=== PATIENT | female | born 1955 | race Caucasian/White ===

== ENCOUNTER 2021-06-03 17:37 | Inpatient (IN) | payer MEDICARE, BC ==
[~2021-06-03] VITALS: Ht 170.2 cm; Wt 108.9 kg
[2021-06-03] MEDS ORDERED: BP MED (17:54)
[2021-06-03] MEDS ORDERED: AMBIEN (17:54)
[2021-06-03] MEDS ORDERED: MORPHINE SULFATE 2 MG/1 ML DISP.SYRIN IV ONE (18:00)
[2021-06-03] MEDS ORDERED: ONDANSETRON 4 MG/2 ML VIAL IV ONE ×2 (18:00→19:15)
[2021-06-03] MEDS ORDERED: MORPHINE SULFATE 4 MG/1 ML DISP.SYRIN ONE (18:03)
[2021-06-03] MEDS ORDERED: ONDANSETRON 4 MG/2 ML VIAL ONE ×2 (18:04→19:21)
--- NOTE | 2021-06-03 18:10 | NUR ---
Pt out of ER for Ct.
--- NOTE | 2021-06-03 18:56 | NUR ---
Pt back from Ct, placed on the monitor. Ice pack to Rt side of face.
--- NOTE | 2021-06-03 19:03 | NUR ---
Handsoff report given to celina production supervisor off shift DAVID.
--- NOTE | 2021-06-03 19:04 | NUR ---
Yash Mai at bedside, MSE in progress.
[2021-06-03] MEDS ORDERED: HYDROMORPHONE 1 MG/1 ML DISP.SYRIN IV ONE (19:15)
[2021-06-03] MEDS ORDERED: LORAZEPAM 2 MG/1 ML VIAL IV ONE (19:15)
[2021-06-03] MEDS ORDERED: HYDROMORPHONE 1 MG/1 ML DISP.SYRIN ONE (19:21)
[2021-06-03] MEDS ORDERED: LORAZEPAM 2 MG/1 ML VIAL ONE (19:22)
[2021-06-03 20:23] LABS: HEMATOCRIT 35.6 % (31.2-41.9); MEAN CORPUSCULAR HEMOGLOBIN 33.3 uug (24.7-32.8); MEAN CORPUSCULAR VOLUME 100.9 fL (75.5-95.3); PLATELET COUNT (AUTO) 263 K/uL (179-408)
[2021-06-03 20:35] LABS: BILIRUBIN,DIRECT 0.1 mg/dL (0.0-0.2); BILIRUBIN,TOTAL 0.3 mg/dL (0.2-1.0); CREATININE 1.2 mg/dL (0.6-1.3); POTASSIUM 3.9 mmol/L (3.5-5.1); TOTAL PROTEIN, SERUM 6.4 g/dL (6.4-8.2)
--- NOTE | 2021-06-03 21:33 | NUR ---
PAGED [facility] FOR PANEL CALL, DR. BURNS CALLED.
--- NOTE | 2021-06-03 21:53 | NUR ---
MD Franklin Good requested to talk to Destinee Felipe paged. Pending call back.
[2021-06-03] MEDS ORDERED: ACETAMINOPHEN 325 MG TABLET PO PRN (22:30)
[2021-06-03] MEDS ORDERED: MAGNESIUM HYDROXIDE 30 ML LIQUID UDC PO PRN (22:30)
[2021-06-03] MEDS ORDERED: Z GUARD REMEDY PASTE 57 GM TUBE TOP PRN (22:30)
--- NOTE | 2021-06-03 23:02 | NUR ---
GAVE REPORT TO CHASITY, MED SURG FLOOR.
--- NOTE | 2021-06-03 23:23 | NUR ---
Pt. admitted to med Surg room 309 , under care of Dr. Felipe Dx: T-12 fracture Belongs List completed
[2021-06-03 23:30] VITALS: BP 105/49
--- NOTE | 2021-06-03 23:30 | NUR ---
RECEIVED PATIENT VIA GURNEY FROM ER. A/O X4. C/O PAIN UPON ARRIVAL TO FLOOR. VS WNL. NO RESP. DISTRESS NOTED. H/L INTACT AND PATENT, NOTED TO LEFT WRIST #20 GAUGE. BED ALARM ON. PATIENT MADE COMFORTABLE IN BED. CALL LIGHT IN REACH. ALL NEEDS ATTENDED. WILL CONTINUE TO MONITOR AND ASSESS.
[2021-06-03] MEDS: MORPHINE SULFATE 2 MG/1 ML DISP.SYRIN IV PRN (23:43)
[2021-06-04] MEDS ORDERED: ZOLP5TAB2 PO (00:31)
[2021-06-04] MEDS ORDERED: MELA3TAB41 PO (00:31)
[2021-06-04] MEDS ORDERED: METF1000 PO (00:31)
[2021-06-04 04:00] VITALS: BP 103/56
[2021-06-04] MEDS: MORPHINE SULFATE 2 MG/1 ML DISP.SYRIN IV PRN ×2 (04:43→12:40)
[2021-06-04] MEDS: PANTOPRAZOLE SODIUM 40 MG TABLET.DR PO SCH (06:17)
--- NOTE | 2021-06-04 06:33 | NUR ---
PATIENT AWAKE IN BED. SLEPT AT INTERVALS THROUGHOUT THE NIGHT. NO RESP. DISTRESS NOTED. VS WNL. CALL LIGHT IN REACH. ALL NEEDS ATTENDED. WILL CONTINUE TO MONITOR.
[2021-06-04 07:55] LABS: HEMATOCRIT 32.3 % (31.2-41.9); MEAN CORPUSCULAR HEMOGLOBIN 34.6 uug (24.7-32.8); PLATELET COUNT (AUTO) 232 K/uL (179-408)
[2021-06-04 08:07] LABS: CREATININE 1.3 mg/dL (0.6-1.3); PHOSPHOROUS 4.5 mg/dL (2.5-4.9); POTASSIUM 4.2 mmol/L (3.5-5.1)
[2021-06-04 08:23] LABS: THYROID STIMULATING HORMONE 1.097 mIU/mL (0.358-3.740)
[2021-06-04] MEDS ORDERED: BUPR-53 PO (11:38)
[2021-06-04] MEDS ORDERED: LEVO100T10 PO (11:38)
[2021-06-04] MEDS ORDERED: ROSU20TA2 PO (11:38)
[2021-06-04] MEDS ORDERED: BLOO-668 IN (11:38)
[2021-06-04] MEDS ORDERED: UBID100C13 PO (11:38)
[2021-06-04] MEDS ORDERED: VALA500T34 PO (11:38)
[2021-06-04] MEDS ORDERED: PANT40TA2 PO (11:38)
[2021-06-04] MEDS ORDERED: INSU100C (11:38)
[2021-06-04] MEDS ORDERED: DULO60CA45 PO (11:38)
[2021-06-04] MEDS ORDERED: DULA0.75 SQ (11:38)
[2021-06-04] MEDS ORDERED: BENA1TAB18 PO (11:38)
[2021-06-04 11:45] VITALS: BP 115/52
[2021-06-04] MEDS: CYCLOBENZAPRINE HCL 10 MG TABLET PO PRN (11:56)
[2021-06-04 16:01] VITALS: BP 131/60
[2021-06-04] MEDS: HYDROCODONE/APAP 5-325MG TABLET PO PRN (16:38)
[2021-06-04] MEDS ORDERED: DEXTROSE 50% 50 ML DISP.SYRIN IV PRN (18:30)
[2021-06-04 20:00] VITALS: BP 120/60
[2021-06-04] MEDS: ATORVASTATIN 40 MG TABLET PO SCH (20:28)
[2021-06-04] MEDS: MELATONIN 3 MG TABLET PO SCH (20:28)
[2021-06-04] MEDS: BLOOD SUGAR DIAGNOSTIC 1 EACH STRIP VI SCH (20:34)
[2021-06-04] MEDS: ZOLPIDEM 5 MG TABLET PO PRN (20:44)
[2021-06-04] MEDS: INSULIN REGULAR, HUMAN 300 UNITS/3 ML VIAL SQ PRN (20:44)
[2021-06-04] MEDS ORDERED: Medication Not On Formulary EA (Rosuvastatin Calcium (Crestor) 1 TAB) PO SCH (21:00)
[2021-06-05] MEDS: CYCLOBENZAPRINE HCL 10 MG TABLET PO PRN ×2 (00:57→09:03)
[2021-06-05 04:00] VITALS: BP 120/60
--- NOTE | 2021-06-05 05:34 | NUR ---
Pt slept intermittently throughout the night. Denies SOB at this time. Able to make needs known. Unable to get to sitting position due to back pain. Able to use bed pain. IV site intact. No other issues or concerns at this time, will endorse to day shift.
[2021-06-05] MEDS: LEVOTHYROXINE SODIUM 100 MCG TABLET PO SCH (06:36)
[2021-06-05] MEDS: PANTOPRAZOLE SODIUM 40 MG TABLET.DR PO SCH (06:36)
[2021-06-05 06:52] LABS: HEMATOCRIT 32.1 % (31.2-41.9); MEAN CORPUSCULAR VOLUME 100.7 fL (75.5-95.3); PLATELET COUNT (AUTO) 194 K/uL (179-408)
[2021-06-05] MEDS: BLOOD SUGAR DIAGNOSTIC 1 EACH STRIP VI SCH ×4 (07:03→20:35)
[2021-06-05 07:21] LABS: PHOSPHOROUS 4.2 mg/dL (2.5-4.9); POTASSIUM 3.9 mmol/L (3.5-5.1)
[2021-06-05] MEDS: INSULIN REGULAR, HUMAN 300 UNIT/3 ML VIAL SQ PRN ×3 (07:32→16:28)
[2021-06-05] MEDS: BENAZEPRIL HCL 20 MG TABLET PO SCH (08:02)
[2021-06-05] MEDS: VALACYCLOVIR HCL 500 MG TABLET PO SCH (08:02)
[2021-06-05] MEDS: DULOXETINE 60 MG CAPSULE.DR PO SCH (08:03)
[2021-06-05] MEDS: buPROPion XL 150 MG TAB.SR.24H PO SCH (08:03)
[2021-06-05] MEDS: HYDROCHLOROTHIAZIDE 12.5 MG CAPSULE PO SCH (08:03)
[2021-06-05] MEDS ORDERED: Medication Not On Formulary EA (Ubidecarenone (Coq-10) 200 MG) PO SCH (09:00)
[2021-06-05] MEDS: HYDROCODONE/APAP 5-325MG TABLET PO PRN ×3 (09:03→19:11)
[2021-06-05 11:30] VITALS: BP 97/40
[2021-06-05] MEDS ORDERED: LIDOCAINE 5% PATCH TD SCH (14:15)
[2021-06-05 14:42] VITALS: BP 101/56
[2021-06-05] MEDS: CYCLOBENZAPRINE HCL 10 MG TABLET PO SCH (16:17)
[2021-06-05] MEDS: METFORMIN HCL 500 MG TABLET PO SCH (18:00)
[2021-06-05] MEDS: MELATONIN 3 MG TABLET PO SCH (20:06)
[2021-06-05] MEDS: ATORVASTATIN 40 MG TABLET PO SCH (20:06)
[2021-06-05 20:16] VITALS: BP 121/68
[2021-06-05] MEDS: INSULIN REGULAR, HUMAN 300 UNITS/3 ML VIAL SQ PRN (20:35)
[2021-06-05] MEDS: MORPHINE SULFATE 4 MG/1 ML DISP.SYRIN IV PRN (22:10)
[2021-06-05] MEDS: ONDANSETRON 4 MG/2 ML VIAL IV PRN (22:52)
[2021-06-06] MEDS: CYCLOBENZAPRINE HCL 10 MG TABLET PO SCH ×4 (00:07→16:18)
[2021-06-06] MEDS: HYDROCODONE/APAP 5-325MG TABLET PO PRN ×3 (02:34→20:57)
[2021-06-06] MEDS: ZOLPIDEM 5 MG TABLET PO PRN ×2 (03:00→22:57)
[2021-06-06 05:10] VITALS: BP 101/59
--- NOTE | 2021-06-06 05:58 | NUR ---
Pt slept intermittently throughout the night. Reports having a lot of back pain and spasms. Dr Felipe notified. Pt's was upset that no one discussed the plan of care with him and wanted to speak to the nursing files supervisor. Nursing files supervisor came to speak with patient. Pt has family friend that is a Doctor at [facility], Dr. Zeferino Walker, that states he will be the accepting physician. Transfer center at [facility] was called to initiate transfer process, spoke with Sravanthi. She states that no beds were available and that they are waiting for financial approval from the patient's insurance. Will endorse to day shift to follow up with [facility] transfer center.
[2021-06-06] MEDS: PANTOPRAZOLE SODIUM 40 MG TABLET.DR PO SCH (06:27)
[2021-06-06] MEDS: LEVOTHYROXINE SODIUM 100 MCG TABLET PO SCH (06:27)
[2021-06-06] MEDS: BLOOD SUGAR DIAGNOSTIC 1 EACH STRIP VI SCH ×4 (06:33→20:45)
[2021-06-06] MEDS: INSULIN REGULAR, HUMAN 300 UNIT/3 ML VIAL SQ PRN ×3 (07:23→16:40)
[2021-06-06 07:28] LABS: HEMATOCRIT 32.8 % (31.2-41.9); MEAN CORPUSCULAR HEMOGLOBIN 34.5 uug (24.7-32.8); MEAN CORPUSCULAR VOLUME 101.6 fL (75.5-95.3); PLATELET COUNT (AUTO) 206 K/uL (179-408)
[2021-06-06] MEDS: HYDROCHLOROTHIAZIDE 12.5 MG CAPSULE PO SCH (08:02)
[2021-06-06] MEDS: BENAZEPRIL HCL 20 MG TABLET PO SCH (08:02)
[2021-06-06] MEDS: buPROPion XL 150 MG TAB.SR.24H PO SCH (08:03)
[2021-06-06] MEDS: DULOXETINE 60 MG CAPSULE.DR PO SCH (08:03)
[2021-06-06] MEDS: VALACYCLOVIR HCL 500 MG TABLET PO SCH (08:03)
[2021-06-06] MEDS: METFORMIN HCL 500 MG TABLET PO SCH ×2 (08:03→17:06)
[2021-06-06 08:06] LABS: *IMMUNOGLOBULIN G, SERUM 389 mg/dL (586-1602); CANCER AG, 125 4.9 U/mL (0.0-38.1); CANCER ANTIGEN 15-3 2.3 U/mL (0.0-25.0); IMMUNOGLOBULIN A, SERUM 107 mg/dL (87-352); IMMUNOGLOBULIN M, SERUM 31 mg/dL (26-217)
[2021-06-06 12:11] VITALS: BP 102/43
[2021-06-06 16:17] VITALS: BP 106/46
[2021-06-06] MEDS: LIDOCAINE 5% PATCH TD SCH (17:06)
[2021-06-06 20:05] VITALS: BP 96/48
[2021-06-06] MEDS: FERROUS SULFATE 325 MG TABEC PO SCH (20:35)
[2021-06-06] MEDS: MELATONIN 3 MG TABLET PO SCH (20:35)
[2021-06-06] MEDS: ATORVASTATIN 40 MG TABLET PO SCH (20:35)
[2021-06-06] MEDS: INSULIN REGULAR, HUMAN 300 UNITS/3 ML VIAL SQ PRN (20:47)
[2021-06-06 20:54] VITALS: BP 112/59
[2021-06-07] MEDS: HYDROCODONE/APAP 5-325MG TABLET PO PRN (02:53)
[2021-06-07] MEDS: CYCLOBENZAPRINE HCL 10 MG TABLET PO SCH ×5 (03:44→16:13)
--- NOTE | 2021-06-07 05:34 | NUR ---
Pt slept intermittently throughout the night. Denies having SOB. Patient has cramps and muscle spasms in back. Tolerated all medications given. Called [facility] transfer center to f/u on bed, still no beds available. Safety and comfort provided. Will endorse to day shift.
[2021-06-07 05:52] VITALS: BP 107/54
[2021-06-07 06:18] LABS: HEMATOCRIT 30.9 % (31.2-41.9); MEAN CORPUSCULAR VOLUME 100.6 fL (75.5-95.3); PLATELET COUNT (AUTO) 209 K/uL (179-408)
[2021-06-07] MEDS: LEVOTHYROXINE SODIUM 100 MCG TABLET PO SCH (06:31)
[2021-06-07] MEDS: PANTOPRAZOLE SODIUM 40 MG TABLET.DR PO SCH (06:31)
[2021-06-07] MEDS: BLOOD SUGAR DIAGNOSTIC 1 EACH STRIP VI SCH ×4 (06:40→20:30)
[2021-06-07 06:50] LABS: CREATININE 1.1 mg/dL (0.6-1.3)
[2021-06-07] MEDS: INSULIN REGULAR, HUMAN 300 UNIT/3 ML VIAL SQ PRN ×2 (07:33→16:16)
[2021-06-07] MEDS: MULTIVITAMINS,THERAPEUTIC TABLET PO SCH (08:06)
[2021-06-07] MEDS: HYDROCHLOROTHIAZIDE 12.5 MG CAPSULE PO SCH (08:06)
[2021-06-07] MEDS: METFORMIN HCL 500 MG TABLET PO SCH ×2 (08:06→17:08)
[2021-06-07] MEDS: DULOXETINE 60 MG CAPSULE.DR PO SCH (08:06)
[2021-06-07] MEDS: BENAZEPRIL HCL 20 MG TABLET PO SCH (08:06)
[2021-06-07] MEDS: FERROUS SULFATE 325 MG TABEC PO SCH ×2 (08:06→20:30)
[2021-06-07] MEDS: buPROPion XL 150 MG TAB.SR.24H PO SCH (08:06)
[2021-06-07] MEDS: VALACYCLOVIR HCL 500 MG TABLET PO SCH (08:07)
[2021-06-07] MEDS: MORPHINE SULFATE 4 MG/1 ML DISP.SYRIN IV PRN (09:16)
[2021-06-07 12:00] VITALS: BP 126/46
[2021-06-07 16:13] VITALS: BP 102/52
[2021-06-07] MEDS: LIDOCAINE 5% PATCH TD SCH (17:08)
--- NOTE | 2021-06-07 19:45 | NUR ---
Patient awake in bed. Bed flat, patient laying on side, c/o back pain. at bedside. Patient given [place] 1 tab po prn for pain. vs wnl. Heplock intact and patent, noted to left fa #20 gauge. Call light in reach. All needs attended. Will continue to monitor and assess.
[2021-06-07] MEDS: HYDROCODONE/APAP 10-325 MG TABLET PO PRN (19:46)
[2021-06-07 20:12] VITALS: BP 132/79
[2021-06-07] MEDS: ONDANSETRON 4 MG/2 ML VIAL IV PRN (20:16)
[2021-06-07] MEDS: MELATONIN 3 MG TABLET PO SCH (20:30)
[2021-06-07] MEDS: ATORVASTATIN 40 MG TABLET PO SCH (20:30)
[2021-06-07] MEDS: ZOLPIDEM 5 MG TABLET PO PRN (23:46)
[2021-06-08 04:12] VITALS: BP 133/67
[2021-06-08] MEDS: LEVOTHYROXINE SODIUM 100 MCG TABLET PO SCH (06:28)
[2021-06-08] MEDS: PANTOPRAZOLE SODIUM 40 MG TABLET.DR PO SCH (06:28)
[2021-06-08] MEDS: HYDROCODONE/APAP 10-325 MG TABLET PO PRN (06:30)
[2021-06-08 06:36] LABS: HEMATOCRIT 31.7 % (31.2-41.9); MEAN CORPUSCULAR HEMOGLOBIN 33.8 uug (24.7-32.8); MEAN CORPUSCULAR VOLUME 100.2 fL (75.5-95.3); PLATELET COUNT (AUTO) 255 K/uL (179-408)
[2021-06-08] MEDS: BLOOD SUGAR DIAGNOSTIC 1 EACH STRIP VI SCH ×4 (06:40→20:34)
[2021-06-08 06:46] LABS: PHOSPHOROUS 3.8 mg/dL (2.5-4.9); POTASSIUM 4.5 mmol/L (3.5-5.1)
[2021-06-08] MEDS: INSULIN REGULAR, HUMAN 300 UNIT/3 ML VIAL SQ PRN ×4 (07:32→20:36)
[2021-06-08] MEDS: FERROUS SULFATE 325 MG TABEC PO SCH ×2 (08:15→20:00)
[2021-06-08] MEDS: HYDROCHLOROTHIAZIDE 12.5 MG CAPSULE PO SCH (08:15)
[2021-06-08] MEDS: MULTIVITAMINS,THERAPEUTIC TABLET PO SCH (08:15)
[2021-06-08] MEDS: METFORMIN HCL 500 MG TABLET PO SCH ×2 (08:15→17:01)
[2021-06-08] MEDS: BENAZEPRIL HCL 20 MG TABLET PO SCH (08:15)
[2021-06-08] MEDS: DULOXETINE 60 MG CAPSULE.DR PO SCH (08:15)
[2021-06-08] MEDS: buPROPion XL 150 MG TAB.SR.24H PO SCH (08:15)
[2021-06-08] MEDS: VALACYCLOVIR HCL 500 MG TABLET PO SCH (08:15)
[2021-06-08] MEDS: CYCLOBENZAPRINE HCL 10 MG TABLET PO SCH ×3 (08:15→16:07)
[2021-06-08 11:39] VITALS: BP 106/47
[2021-06-08 12:06] LABS: A/G RATIO 1.1 (0.7-1.7); ALBUMIN 2.9 g/dL (2.9-4.4); ALPHA-1-GLOBULIN 0.2 g/dL (0.0-0.4); GAMMA GLOBULIN 0.4 g/dL (0.4-1.8); GLOBULIN, TOTAL 2.6 g/dL (2.2-3.9); M-SPIKE Not Observed g/dL (Not Observed)
[2021-06-08] MEDS: HYDROCODONE/APAP 5-325MG TABLET PO PRN (15:38)
[2021-06-08 15:41] VITALS: BP 103/70
[2021-06-08] MEDS: LIDOCAINE 5% PATCH TD SCH (17:01)
[2021-06-08] MEDS: MELATONIN 3 MG TABLET PO SCH (20:00)
[2021-06-08] MEDS: ATORVASTATIN 40 MG TABLET PO SCH (20:00)
[2021-06-08 20:06] VITALS: BP 97/50
[2021-06-09 04:07] VITALS: BP 102/54
[2021-06-09] MEDS: BLOOD SUGAR DIAGNOSTIC 1 EACH STRIP VI SCH ×4 (06:02→20:33)
[2021-06-09] MEDS: PANTOPRAZOLE SODIUM 40 MG TABLET.DR PO SCH (06:02)
[2021-06-09] MEDS: LEVOTHYROXINE SODIUM 100 MCG TABLET PO SCH (06:02)
[2021-06-09 06:39] LABS: HEMATOCRIT 30.4 % (31.2-41.9); MEAN CORPUSCULAR HEMOGLOBIN 33.9 uug (24.7-32.8); MEAN CORPUSCULAR VOLUME 100.3 fL (75.5-95.3); PLATELET COUNT (AUTO) 232 K/uL (179-408)
[2021-06-09 07:02] LABS: PHOSPHOROUS 3.5 mg/dL (2.5-4.9); POTASSIUM 4.1 mmol/L (3.5-5.1)
[2021-06-09 08:18] VITALS: BP 113/56
[2021-06-09] MEDS: METFORMIN HCL 500 MG TABLET PO SCH ×2 (08:23→17:01)
[2021-06-09] MEDS: INSULIN REGULAR, HUMAN 300 UNIT/3 ML VIAL SQ PRN ×3 (08:23→20:37)
[2021-06-09] MEDS: VALACYCLOVIR HCL 500 MG TABLET PO SCH (08:23)
[2021-06-09] MEDS: HYDROCHLOROTHIAZIDE 12.5 MG CAPSULE PO SCH (08:24)
[2021-06-09] MEDS: buPROPion XL 150 MG TAB.SR.24H PO SCH (08:24)
[2021-06-09] MEDS: FERROUS SULFATE 325 MG TABEC PO SCH ×2 (08:24→20:22)
[2021-06-09] MEDS: BENAZEPRIL HCL 20 MG TABLET PO SCH (08:24)
[2021-06-09] MEDS: CYCLOBENZAPRINE HCL 10 MG TABLET PO SCH ×3 (08:24→17:01)
[2021-06-09] MEDS: DULOXETINE 60 MG CAPSULE.DR PO SCH (08:25)
[2021-06-09] MEDS: MULTIVITAMINS,THERAPEUTIC TABLET PO SCH (08:25)
[2021-06-09] MEDS: HYDROCODONE/APAP 10-325 MG TABLET PO PRN ×2 (10:34→21:25)
[2021-06-09 11:31] VITALS: BP 102/45
[2021-06-09 16:00] VITALS: BP 100/54
[2021-06-09] MEDS: LIDOCAINE 5% PATCH TD SCH (17:01)
--- NOTE | 2021-06-09 18:04 | NUR ---
Received patient alert/oriented x4, BS reading 145mg/dL in the am, insulin sliding scale given as ordered. She requested [place] at 1030H due to back pain, it was effective. Patient goes to the bathroom without asking for any help and unaware of safety precautions. She is high risk for fall due to history. Reminded to call for assistance, understanding noted. and son came to see the patient. GIANCARLO Lugo seen the patient. Patient is for possible discharge and will transfer to [facility]. Dino from [facility] called and stated, they are waiting for a room to be available. Family informed and noted with understanding. Accuceck at 1130H was 153, insulin given per sliding scale. At 1630H, Faxed request for medical records as ordered from her Oncologist, Dr. Betzaida Dawn from the medical [facility] received the request. Will follow up. Accucheck at 1630H was 117mg/dL. Followed up on stool sample from the patient. Kept the container in the room. No distress identified. Frequent visual check done. Kept call light within reach Assisted with ADLs. All needs attended. Kept environment safe. All due meds given as ordered. Will endorse to the next shift for continuity of care.
[2021-06-09 20:00] VITALS: BP 102/52
[2021-06-09] MEDS: ATORVASTATIN 40 MG TABLET PO SCH (20:22)
[2021-06-09] MEDS: MELATONIN 3 MG TABLET PO SCH (20:22)
[2021-06-10 04:00] VITALS: BP 107/66
[2021-06-10] MEDS: PANTOPRAZOLE SODIUM 40 MG TABLET.DR PO SCH (06:11)
[2021-06-10] MEDS: LEVOTHYROXINE SODIUM 100 MCG TABLET PO SCH (06:11)
[2021-06-10] MEDS: BLOOD SUGAR DIAGNOSTIC 1 EACH STRIP VI SCH ×4 (06:37→21:11)
[2021-06-10 06:38] LABS: MEAN CORPUSCULAR HEMOGLOBIN 34.5 uug (24.7-32.8); MEAN CORPUSCULAR VOLUME 100.3 fL (75.5-95.3); PLATELET COUNT (AUTO) 248 K/uL (179-408)
[2021-06-10 07:07] LABS: CREATININE 1.1 mg/dL (0.6-1.3); MAGNESIUM 1.7 mg/dL (1.8-2.4); PHOSPHOROUS 4.2 mg/dL (2.5-4.9); POTASSIUM 4.2 mmol/L (3.5-5.1)
[2021-06-10 08:05] VITALS: BP 119/67
[2021-06-10] MEDS: INSULIN REGULAR, HUMAN 300 UNIT/3 ML VIAL SQ PRN ×2 (08:06→11:46)
[2021-06-10] MEDS: MULTIVITAMINS,THERAPEUTIC TABLET PO SCH (09:11)
[2021-06-10] MEDS: VALACYCLOVIR HCL 500 MG TABLET PO SCH (09:11)
[2021-06-10] MEDS: HYDROCHLOROTHIAZIDE 12.5 MG CAPSULE PO SCH (09:11)
[2021-06-10] MEDS: DULOXETINE 60 MG CAPSULE.DR PO SCH (09:11)
[2021-06-10] MEDS: CYCLOBENZAPRINE HCL 10 MG TABLET PO SCH ×2 (09:11→13:00)
[2021-06-10] MEDS: FERROUS SULFATE 325 MG TABEC PO SCH ×2 (09:11→20:57)
[2021-06-10] MEDS: BENAZEPRIL HCL 20 MG TABLET PO SCH (09:12)
[2021-06-10] MEDS: buPROPion XL 150 MG TAB.SR.24H PO SCH (09:32)
[2021-06-10] MEDS: METFORMIN HCL 500 MG TABLET PO SCH ×2 (09:32→17:12)
[2021-06-10] MEDS: HYDROCODONE/APAP 10-325 MG TABLET PO PRN ×2 (11:45→21:02)
[2021-06-10 11:50] VITALS: BP 114/58
[2021-06-10] MEDS ORDERED: MAGNESIUM SULFATE/D5W 100 ML IV SCH (13:45)
[2021-06-10] MEDS ORDERED: MAGNESIUM OXIDE 400 MG TABLET PO ONE (14:00)
[2021-06-10 15:28] LABS: *OCCULT BLOOD STOOL NEGATIVE (NEGATIVE)
[2021-06-10 16:00] VITALS: BP 124/54
[2021-06-10] MEDS: LIDOCAINE 5% PATCH TD SCH (17:12)
[2021-06-10] MEDS ORDERED: BENA20TA9 PO ×2 (18:27→22:57)
[2021-06-10] MEDS ORDERED: CYCL10TA9 PO (18:27)
[2021-06-10] MEDS ORDERED: PANT40TA2 PO (18:27)
[2021-06-10] MEDS ORDERED: LIDO30AD10 TD ×2 (18:27→22:57)
[2021-06-10] MEDS ORDERED: ATOR40TA PO ×2 (18:27→22:57)
[2021-06-10] MEDS ORDERED: HYDR-3980 PO ×2 (18:27→22:57)
[2021-06-10] MEDS ORDERED: FERR325T28 PO ×2 (18:27→22:57)
[2021-06-10] MEDS ORDERED: METF-440 PO ×2 (18:27→22:57)
[2021-06-10] MEDS ORDERED: MULT-24 PO ×2 (18:27→22:57)
[2021-06-10] MEDS ORDERED: MAGN400O6 PO ×2 (18:27→22:57)
[2021-06-10] MEDS ORDERED: HYDR12.517 PO (18:27)
[2021-06-10] MEDS ORDERED: INSU100V28 SQ ×2 (18:27)
[2021-06-10] MEDS ORDERED: HYDR-3972 PO ×2 (18:27→22:57)
--- NOTE | 2021-06-10 18:49 | NUR ---
Patient is alert/orientedx4, PRN pain medication given as ordered. Tolerated PT session today. BS at the start of the shift is 146mg/dL, insulin per sliding scale given as ordered, end shift accucheck is 129mg/dL, no insulin given per sliding scale. No distress identified. Frequent visual check done. Kept call light within reach. Assisted with ADLs. All needs attended. Kept environment safe. All due meds given as ordered. Will endorse to the next shift for continuity of care.
[2021-06-10 20:00] VITALS: BP 102/52
[2021-06-10] MEDS: MELATONIN 3 MG TABLET PO SCH (20:57)
[2021-06-10] MEDS: ATORVASTATIN 40 MG TABLET PO SCH (20:57)
[2021-06-10] MEDS ORDERED: CYCLOBENZAPRINE HCL 10 MG TABLET PO SCH (22:00)
[2021-06-10] MEDS ORDERED: CYCL5TAB PO (22:57)
[2021-06-10] MEDS ORDERED: INSU100V28 SUBCUT ×2 (22:57)
[2021-06-10] MEDS ORDERED: PANT40TA49 PO (22:57)
[2021-06-10] MEDS ORDERED: HYDR12.55 PO (22:57)
== END 2021-06-10 21:31 | DRG 552 ==
LOC: ER 17:39 → MEDSURG3 23:05
PROVIDERS: ADMIT Student in an Organized Health Care Education/Training Program; ATTEND Registered Nurse
DX: S22.089A Unspecified fracture of T11-T12 vertebra, initial encounter for closed fracture (principal); E44.1 Mild protein-calorie malnutrition; S00.11XA Contusion of right eyelid and periocular area, initial encounter; E03.9 Hypothyroidism, unspecified; W01.0XXA Fall on same level from slipping, tripping and stumbling without subsequent striking against object, initial encounter; D72.829 Elevated white blood cell count, unspecified; D53.9 Nutritional anemia, unspecified; E78.5 Hyperlipidemia, unspecified; E86.0 Dehydration; G47.00 Insomnia, unspecified; G89.11 Acute pain due to trauma; K44.9 Diaphragmatic hernia without obstruction or gangrene; Z87.891 Personal history of nicotine dependence; M47.896 Other spondylosis, lumbar region; Z68.37 Body mass index [BMI] 37.0-37.9, adult; M51.36 Other intervertebral disc degeneration, lumbar region; M48.061 Spinal stenosis, lumbar region without neurogenic claudication; Z86.73 Personal history of transient ischemic attack (TIA), and cerebral infarction without residual deficits; Y93.9 Activity, unspecified; Y92.009 Unspecified place in unspecified non-institutional (private) residence as the place of occurrence of the external cause; E61.1 Iron deficiency; Z20.822 Contact with and (suspected) exposure to COVID-19; E11.65 Type 2 diabetes mellitus with hyperglycemia; Z79.84 Long term (current) use of oral hypoglycemic drugs
CPT/HCPCS: 36415; 70030-TC; 70450; 70486; 71045; 72125; 72131; 73130; 82378; 82747; 82784; 83550; 83735; 84100; 84155; 84165; 84443; 85014; 85025; 85730; 86300; 86334; 97161; A4663; G0378; J1170; J1815; J2060; J2270; J2405

== ENCOUNTER 2021-06-10 20:30 | Inpatient (IN) | payer MEDICARE, BC ==
[~2021-06-10] VITALS: Ht 170.2 cm; Wt 108.9 kg
[~2021-06-10 20:30] MED LIST: AMBIEN; ATOR40TA PO; BENA1TAB18 PO; BENA20TA9 PO; BLOO-668 IN; BP MED; BUPR-53 PO; CYCL10TA9 PO; DULA0.75 SQ; DULO60CA45 PO; FERR325T28 PO; HYDR-3972 PO; HYDR-3980 PO; HYDR12.517 PO; INSU100C; INSU100V28 SQ; LEVO100T10 PO; LIDO30AD10 TD; MAGN400O6 PO; MELA3TAB41 PO; METF-440 PO; METF1000 PO; MULT-24 PO; PANT40TA2 PO; ROSU20TA2 PO; UBID100C13 PO; VALA500T34 PO; ZOLP5TAB2 PO
[2021-06-10] MEDS ORDERED: Z GUARD REMEDY PASTE 57 GM TUBE TOP PRN (22:15)
[2021-06-10] MEDS ORDERED: BENA20TA9 PO (22:57)
[2021-06-10] MEDS ORDERED: CYCL5TAB PO (22:57)
[2021-06-10] MEDS ORDERED: METF-440 PO (22:57)
[2021-06-10] MEDS ORDERED: PANT40TA49 PO (22:57)
[2021-06-10] MEDS ORDERED: INSU100V28 SUBCUT ×2 (22:57)
[2021-06-10] MEDS ORDERED: HYDR12.55 PO (22:57)
[2021-06-10] MEDS ORDERED: FERR325T28 PO (22:57)
[2021-06-10] MEDS ORDERED: ATOR40TA PO (22:57)
[2021-06-10] MEDS ORDERED: LIDO30AD10 TD (22:57)
[2021-06-10] MEDS ORDERED: MULT-24 PO (22:57)
[2021-06-10] MEDS ORDERED: HYDR-3972 PO (22:57)
[2021-06-10] MEDS ORDERED: MAGN400O6 PO (22:57)
[2021-06-10] MEDS ORDERED: HYDR-3980 PO (22:57)
[2021-06-11 04:00] VITALS: BP 104/54
--- NOTE | 2021-06-11 04:48 | NUR ---
Admitted 65 y/o female from med surg to ARU with dx of spinal fructure. Alert and oriented x4, on room air with no respiratory distress noted. Heplock on L FA intact and flushed with NS. Denies pain and discomfort at this time. Full body assessment done, photo taken, and placed in chart. Belongings list done by [employer]. Seen and examined by Radha GUPTA. Per Dr. Mora, he will do med recon in AM. All needs attended. Call light placed within reach. Will continue to monitor.
[2021-06-11 08:00] VITALS: BP 116/48
[2021-06-11 10:30] LABS: HEMATOCRIT 33.8 % (31.2-41.9); MEAN CORPUSCULAR HEMOGLOBIN 33.9 uug (24.7-32.8); MEAN CORPUSCULAR VOLUME 101.4 fL (75.5-95.3); PLATELET COUNT (AUTO) 283 K/uL (179-408)
[2021-06-11] MEDS ORDERED: MAGNESIUM HYDROXIDE 30 ML LIQUID UDC PO PRN (10:30)
[2021-06-11] MEDS ORDERED: INSULIN REGULAR, HUMAN 300 UNIT/3 ML VIAL SQ PRN ×2 (10:30)
[2021-06-11 10:42] LABS: BILIRUBIN,TOTAL 0.3 mg/dL (0.2-1.0); CREATININE 1.2 mg/dL (0.6-1.3); MAGNESIUM 1.6 mg/dL (1.8-2.4); PHOSPHOROUS 3.3 mg/dL (2.5-4.9); POTASSIUM 4.3 mmol/L (3.5-5.1); TOTAL PROTEIN, SERUM 6.4 g/dL (6.4-8.2)
[2021-06-11] MEDS ORDERED: BLOOD SUGAR DIAGNOSTIC 1 EACH STRIP VI SCH (11:30)
[2021-06-11] MEDS: HYDROCODONE/APAP 10-325 MG TABLET PO PRN ×2 (11:59→20:56)
[2021-06-11] MEDS: DULOXETINE 60 MG CAPSULE.DR PO SCH (12:05)
[2021-06-11] MEDS: HYDROCHLOROTHIAZIDE 12.5 MG CAPSULE PO SCH (12:06)
[2021-06-11] MEDS: METFORMIN HCL 500 MG TABLET PO SCH ×2 (12:06→17:09)
[2021-06-11] MEDS: BENAZEPRIL HCL 20 MG TABLET PO SCH (12:06)
[2021-06-11] MEDS: INSULIN REGULAR, HUMAN 300 UNIT/3 ML VIAL SQ PRN (12:29)
[2021-06-11] MEDS ORDERED: DEXTROSE 50% 50 ML DISP.SYRIN IV PRN (12:30)
[2021-06-11] MEDS: BLOOD SUGAR DIAGNOSTIC 1 EACH STRIP VI SCH ×4 (12:56→20:41)
[2021-06-11] MEDS ORDERED: CYCLOBENZAPRINE HCL 10 MG TABLET PO SCH (14:00)
[2021-06-11 16:02] VITALS: BP 112/64
--- NOTE | 2021-06-11 17:59 | NUR ---
Patient alert/arientedx4, Med recon was done. No distress identified. Tolerated therapy sessions. Accucheck at noon is 154 mg/dL, administered insulin per sliding scale. No distress identified. End shift accucheck is 86 and 103mg/dL. Frequent visual check done. Kept call light within reach. Assisted with ADLs. All needs attended. Kept environment safe. All due meds given as ordered. Will endorse to the next shift for continuity of care.
[2021-06-11] MEDS ORDERED: LOPERAMIDE HCL 2 MG CAPSULE PO PRN (20:15)
[2021-06-11] MEDS: FERROUS SULFATE 325 MG TABEC PO SCH (20:31)
[2021-06-11] MEDS: MELATONIN 3 MG TABLET PO SCH (20:32)
[2021-06-11] MEDS: ATORVASTATIN 40 MG TABLET PO SCH (20:32)
[2021-06-11 20:36] VITALS: BP 111/65
[2021-06-11] MEDS: INSULIN REGULAR, HUMAN 300 UNITS/3 ML VIAL SQ PRN (20:50)
[2021-06-11] MEDS ORDERED: ZOLPIDEM 5 MG TABLET PO SCH (21:00)
[2021-06-11] MEDS ORDERED: ZOLPIDEM 5 MG TABLET PO PRN (21:00)
--- NOTE | 2021-06-11 22:04 | NUR ---
Received resident on bed with no respiratory distress noted. at bedside. Alert and oriented x4, able to make needs known. Complaint of loose watery stools x4. Dr. Calderon made aware, ordered Imodium PRN and C-diff stool test. Imodium PRN given. Patient is ambulatory with assist to bathroom. Due medications given and tolerated well. All needs attended. Call light placed within reach. Will continue to monitor.
[2021-06-12 04:35] VITALS: BP 109/58
[2021-06-12] MEDS: PANTOPRAZOLE SODIUM 40 MG TABLET.DR PO SCH (06:16)
[2021-06-12] MEDS: BLOOD SUGAR DIAGNOSTIC 1 EACH STRIP VI SCH ×4 (06:30→21:16)
--- NOTE | 2021-06-12 06:51 | NUR ---
Pt slept throughout the night. No BM noted after Imodium was given. Pt verbalized she feels much better. Still to collect for stool sample. All needs attended. Call light placed within reach. Frequent visual checks done. Will endorse to next shift for continuity of care.
[2021-06-12 08:00] VITALS: BP 123/52
[2021-06-12] MEDS: buPROPion XL 150 MG TAB.SR.24H PO SCH (08:45)
[2021-06-12] MEDS: DULOXETINE 60 MG CAPSULE.DR PO SCH (08:45)
[2021-06-12] MEDS: HYDROCHLOROTHIAZIDE 12.5 MG CAPSULE PO SCH (08:46)
[2021-06-12] MEDS: VALACYCLOVIR HCL 500 MG TABLET PO SCH (08:46)
[2021-06-12] MEDS: FERROUS SULFATE 325 MG TABEC PO SCH ×2 (08:46→21:05)
[2021-06-12] MEDS: METFORMIN HCL 500 MG TABLET PO SCH ×2 (08:46→17:03)
[2021-06-12] MEDS: MULTIVITAMINS,THERAPEUTIC TABLET PO SCH (08:47)
[2021-06-12] MEDS: BENAZEPRIL HCL 20 MG TABLET PO SCH (08:47)
[2021-06-12] MEDS: LEVOTHYROXINE SODIUM 100 MCG TABLET PO SCH (08:47)
[2021-06-12] MEDS: LIDOCAINE 5% PATCH TD SCH (08:53)
[2021-06-12] MEDS ORDERED: Medication Not On Formulary EA (Hydrochlorothiazide 12.5 MG) PO SCH (09:00)
[2021-06-12] MEDS: CYCLOBENZAPRINE HCL 10 MG TABLET PO PRN ×2 (12:28→21:10)
[2021-06-12] MEDS: HYDROCODONE/APAP 10-325 MG TABLET PO PRN ×2 (12:28→21:10)
[2021-06-12] MEDS: INSULIN REGULAR, HUMAN 300 UNITS/3 ML VIAL SQ PRN ×2 (12:36→21:18)
[2021-06-12 16:00] VITALS: BP 101/47
[2021-06-12] MEDS ORDERED: COQ PO SCH (17:00)
[2021-06-12] MEDS: COQ PO SCH (17:03)
--- NOTE | 2021-06-12 17:53 | NUR ---
Patient started home med COQ10 200mg, ATHLETIC MONITOR Brittney aware and order. Patient continue blood sugar monitoring. tolerated well. no insulin coverage given. Patient participated well with therapy. no c/o of pain/discomfort. will continue monitor
[2021-06-12 19:53] VITALS: BP 106/57
[2021-06-12] MEDS: ATORVASTATIN 40 MG TABLET PO SCH (21:04)
[2021-06-12] MEDS: MELATONIN 3 MG TABLET PO SCH (21:05)
--- NOTE | 2021-06-13 03:37 | NUR ---
Awake alert and oriented x4 No acute distress noted. Needs attended. VSS. Admitted for spinal fracture. Pain meds given as needed. Relief noted. Continent of bowel and bladder. Back brace when OOB.No acute distress noted.
[2021-06-13 04:51] VITALS: BP 103/57
[2021-06-13 06:02] LABS: HEMATOCRIT 33.1 % (31.2-41.9); MEAN CORPUSCULAR HEMOGLOBIN 33.9 uug (24.7-32.8); MEAN CORPUSCULAR VOLUME 100.6 fL (75.5-95.3); PLATELET COUNT (AUTO) 294 K/uL (179-408)
[2021-06-13] MEDS: PANTOPRAZOLE SODIUM 40 MG TABLET.DR PO SCH (06:03)
[2021-06-13] MEDS: BLOOD SUGAR DIAGNOSTIC 1 EACH STRIP VI SCH ×4 (06:35→20:42)
[2021-06-13 08:00] VITALS: BP 116/45
[2021-06-13] MEDS: BENAZEPRIL HCL 20 MG TABLET PO SCH (08:45)
[2021-06-13] MEDS: HYDROCHLOROTHIAZIDE 12.5 MG CAPSULE PO SCH (08:45)
[2021-06-13] MEDS: LEVOTHYROXINE SODIUM 100 MCG TABLET PO SCH (08:45)
[2021-06-13] MEDS: MULTIVITAMINS,THERAPEUTIC TABLET PO SCH (08:45)
[2021-06-13] MEDS: FERROUS SULFATE 325 MG TABEC PO SCH ×2 (08:45→20:33)
[2021-06-13] MEDS: buPROPion XL 150 MG TAB.SR.24H PO SCH (08:45)
[2021-06-13] MEDS: DULOXETINE 60 MG CAPSULE.DR PO SCH (08:46)
[2021-06-13] MEDS: VALACYCLOVIR HCL 500 MG TABLET PO SCH (08:46)
[2021-06-13] MEDS: COQ PO SCH (08:46)
[2021-06-13] MEDS: METFORMIN HCL 500 MG TABLET PO SCH ×2 (08:46→17:23)
[2021-06-13] MEDS: LIDOCAINE 5% PATCH TD SCH (08:47)
[2021-06-13] MEDS: CYCLOBENZAPRINE HCL 10 MG TABLET PO PRN ×2 (08:53→17:22)
[2021-06-13] MEDS: HYDROCODONE/APAP 10-325 MG TABLET PO PRN ×2 (11:35→18:54)
[2021-06-13] MEDS: INSULIN REGULAR, HUMAN 300 UNIT/3 ML VIAL SQ PRN (11:57)
--- NOTE | 2021-06-13 13:30 | NUR ---
INDIVIDUALIZED PLAN OF CARE
[2021-06-13 16:26] VITALS: BP 111/58
--- NOTE | 2021-06-13 19:30 | NUR ---
RECEIVED PT AWAKE, ALERT AND ORIENTEDX4. PT IN NO ACUTE DISTRESS. AT BEDSIDE. SAFETY AND COMFORT PROVIDED.WILL CONTINUE TO MONITOR.
[2021-06-13 20:00] VITALS: BP 131/62
[2021-06-13] MEDS: MELATONIN 3 MG TABLET PO SCH (20:33)
[2021-06-13] MEDS: ATORVASTATIN 40 MG TABLET PO SCH (20:33)
[2021-06-14 04:00] VITALS: BP 101/44
[2021-06-14] MEDS: PANTOPRAZOLE SODIUM 40 MG TABLET.DR PO SCH (06:00)
--- NOTE | 2021-06-14 06:03 | NUR ---
PT SLEPT COMFORTABLY. PT IN NO ACUTE DISTRESS. BLOOD SUGAR WAS 159 . PRESCRIBED MEDICATION GIVEN AND PT TOLERATED IT WELL. SAFETY AND COMFORT PROVIDED. ALL NEEDS ARE MET. WILL ENDORSE TO INCOMING NURSE FOR CONTINUITY OF CARE.
[2021-06-14] MEDS: BLOOD SUGAR DIAGNOSTIC 1 EACH STRIP VI SCH ×4 (06:33→20:34)
[2021-06-14 07:54] VITALS: BP 143/73
[2021-06-14] MEDS: HYDROCHLOROTHIAZIDE 12.5 MG CAPSULE PO SCH (08:33)
[2021-06-14] MEDS: buPROPion XL 150 MG TAB.SR.24H PO SCH (08:34)
[2021-06-14] MEDS: MULTIVITAMINS,THERAPEUTIC TABLET PO SCH (08:34)
[2021-06-14] MEDS: DULOXETINE 60 MG CAPSULE.DR PO SCH (08:34)
[2021-06-14] MEDS: METFORMIN HCL 500 MG TABLET PO SCH ×2 (08:34→17:24)
[2021-06-14] MEDS: BENAZEPRIL HCL 20 MG TABLET PO SCH (08:35)
[2021-06-14] MEDS: LEVOTHYROXINE SODIUM 100 MCG TABLET PO SCH (08:35)
[2021-06-14] MEDS: VALACYCLOVIR HCL 500 MG TABLET PO SCH (08:36)
[2021-06-14] MEDS: LIDOCAINE 5% PATCH TD SCH (08:36)
[2021-06-14] MEDS: COQ PO SCH (08:36)
[2021-06-14] MEDS: FERROUS SULFATE 325 MG TABEC PO SCH ×2 (08:36→20:15)
[2021-06-14] MEDS: INSULIN REGULAR, HUMAN 300 UNIT/3 ML VIAL SQ PRN ×3 (08:44→20:35)
[2021-06-14 15:56] VITALS: BP 119/53
[2021-06-14] MEDS: HYDROCODONE/APAP 10-325 MG TABLET PO PRN (16:55)
--- NOTE | 2021-06-14 19:23 | NUR ---
NO CHANGES NOTED DURING SHIFT
[2021-06-14 20:00] VITALS: BP 157/56
[2021-06-14] MEDS: ATORVASTATIN 40 MG TABLET PO SCH (20:15)
[2021-06-14] MEDS: MELATONIN 3 MG TABLET PO SCH (20:15)
[2021-06-15 04:00] VITALS: BP 129/70
[2021-06-15] MEDS: PANTOPRAZOLE SODIUM 40 MG TABLET.DR PO SCH (06:13)
[2021-06-15] MEDS: BLOOD SUGAR DIAGNOSTIC 1 EACH STRIP VI SCH ×4 (06:13→20:35)
[2021-06-15] MEDS: INSULIN REGULAR, HUMAN 300 UNIT/3 ML VIAL SQ PRN (07:48)
[2021-06-15 08:00] VITALS: BP 126/37
--- NOTE | 2021-06-15 08:00 | NUR ---
AWAKE ALERT AND ORIENTED DENIES PAIN OR DISCOMFORTS AT THIS TIME NO S/S OF HYPO/HYPERGLYCEMIC REACTIONS AT THIS TIME CALL LIGHTS AND PERSONAL BELONGINGS ARE WITHIN EASY REACH WILL CONTINUE WITH REHAB THERAPIES ORDERED.
[2021-06-15] MEDS: COQ PO SCH (08:24)
[2021-06-15] MEDS: VALACYCLOVIR HCL 500 MG TABLET PO SCH (08:24)
[2021-06-15] MEDS: DULOXETINE 60 MG CAPSULE.DR PO SCH (08:25)
[2021-06-15] MEDS: METFORMIN HCL 500 MG TABLET PO SCH ×2 (08:25→17:25)
[2021-06-15] MEDS: BENAZEPRIL HCL 20 MG TABLET PO SCH (08:25)
[2021-06-15] MEDS: LEVOTHYROXINE SODIUM 100 MCG TABLET PO SCH (08:25)
[2021-06-15] MEDS: MULTIVITAMINS,THERAPEUTIC TABLET PO SCH (08:25)
[2021-06-15] MEDS: HYDROCHLOROTHIAZIDE 12.5 MG CAPSULE PO SCH (08:25)
[2021-06-15] MEDS: buPROPion XL 150 MG TAB.SR.24H PO SCH (08:26)
[2021-06-15] MEDS: LIDOCAINE 5% PATCH TD SCH (08:26)
[2021-06-15] MEDS: FERROUS SULFATE 325 MG TABEC PO SCH ×2 (08:54→20:20)
[2021-06-15 10:50] LABS: *OCCULT BLOOD STOOL NEGATIVE (NEGATIVE)
--- NOTE | 2021-06-15 11:38 | NUR ---
DR PEREZ HERE SEEN PATIENT WITH NEW ORDERS AND NOTED
[2021-06-15 16:00] VITALS: BP 123/58
--- NOTE | 2021-06-15 18:00 | NUR ---
BLOOD SUGAR IS 130 NO S/S OF HYPO/HYPERGLYCEMIC REACTIONS DENIES DISCOMFORTS WILL CONTINUE TO OBSERVE.
[2021-06-15 20:13] VITALS: BP 105/52
[2021-06-15] MEDS: MELATONIN 3 MG TABLET PO SCH (20:20)
[2021-06-15] MEDS: ATORVASTATIN 40 MG TABLET PO SCH (20:20)
[2021-06-15] MEDS: HYDROCODONE/APAP 10-325 MG TABLET PO PRN (20:21)
[2021-06-15] MEDS: INSULIN REGULAR, HUMAN 300 UNITS/3 ML VIAL SQ PRN (20:39)
--- NOTE | 2021-06-16 01:03 | NUR ---
Resting in bed upon initial rounds. AAOx4 Ambulates to the BR. Continent of bowel and bladder. BM noted this shift.All due meds given without difficulty. Medicated for pain as ordered with relief noted. Back brace on when OOB. All needs attended. VSS. No acute distress noted. Accucheck 133 with 2units given as coverage. Kept comfortable. Fall precautions maintained. Siderails up for safety.
[2021-06-16 04:46] VITALS: BP 101/54
[2021-06-16] MEDS: PANTOPRAZOLE SODIUM 40 MG TABLET.DR PO SCH (06:13)
[2021-06-16 06:24] LABS: HEMATOCRIT 31.6 % (31.2-41.9); MEAN CORPUSCULAR HEMOGLOBIN 34.4 uug (24.7-32.8); MEAN CORPUSCULAR VOLUME 99.2 fL (75.5-95.3); PLATELET COUNT (AUTO) 289 K/uL (179-408)
[2021-06-16] MEDS: BLOOD SUGAR DIAGNOSTIC 1 EACH STRIP VI SCH ×4 (06:37→20:29)
[2021-06-16 06:44] LABS: MAGNESIUM 1.4 mg/dL (1.8-2.4); PHOSPHOROUS 3.5 mg/dL (2.5-4.9); POTASSIUM 3.6 mmol/L (3.5-5.1)
[2021-06-16 08:00] VITALS: BP 142/70
[2021-06-16] MEDS: MULTIVITAMINS,THERAPEUTIC TABLET PO SCH (08:48)
[2021-06-16] MEDS: BENAZEPRIL HCL 20 MG TABLET PO SCH (08:48)
[2021-06-16] MEDS: buPROPion XL 150 MG TAB.SR.24H PO SCH (08:48)
[2021-06-16] MEDS: DULOXETINE 60 MG CAPSULE.DR PO SCH (08:48)
[2021-06-16] MEDS: METFORMIN HCL 500 MG TABLET PO SCH ×2 (08:48→18:26)
[2021-06-16] MEDS: FERROUS SULFATE 325 MG TABEC PO SCH ×2 (08:49→20:22)
[2021-06-16] MEDS: VALACYCLOVIR HCL 500 MG TABLET PO SCH (08:49)
[2021-06-16] MEDS: COQ PO SCH (08:49)
[2021-06-16] MEDS: LEVOTHYROXINE SODIUM 100 MCG TABLET PO SCH (08:49)
[2021-06-16] MEDS: HYDROCHLOROTHIAZIDE 12.5 MG CAPSULE PO SCH (08:49)
[2021-06-16] MEDS: LIDOCAINE 5% PATCH TD SCH ×2 (08:50→09:00)
[2021-06-16] MEDS ORDERED: MAGNESIUM OXIDE 400 MG TABLET PO ONE (10:15)
[2021-06-16] MEDS: INSULIN REGULAR, HUMAN 300 UNIT/3 ML VIAL SQ PRN (12:19)
[2021-06-16] MEDS: HYDROCODONE/APAP 5-325MG TABLET PO PRN (13:09)
--- NOTE | 2021-06-16 14:34 | NUR ---
INTERDISCIPLINARY TEAM CONFERENCE
[2021-06-16 16:12] VITALS: BP 147/78
--- NOTE | 2021-06-16 18:45 | NUR ---
Patient remains alert, oriented x 4, not in any form of distress, on room air, ambulatory with walker. She complained of back pain, given PRN pain medication as ordered with noted relief. Assisted with her needs. Patient participated with PT/OT. Call light and frequently used items placed within reach. Will continue to monitor and will endorse accordingly.
[2021-06-16 20:18] VITALS: BP 120/48
[2021-06-16] MEDS: MELATONIN 3 MG TABLET PO SCH (20:20)
[2021-06-16] MEDS: ATORVASTATIN 40 MG TABLET PO SCH (20:21)
[2021-06-16] MEDS: INSULIN REGULAR, HUMAN 300 UNITS/3 ML VIAL SQ PRN (20:32)
--- NOTE | 2021-06-16 20:59 | NUR ---
Received resident on bed with no respiratory distress noted. Alert and oriented x4, able to make needs known. Denies pain and discomfort at this time. Due medications given and tolerated well. Accuchecks done 138, insulin 2 units given. All needs attended. Call light placed within reach. Will continue to monitor.
[2021-06-17 04:20] VITALS: BP 123/60
[2021-06-17] MEDS: PANTOPRAZOLE SODIUM 40 MG TABLET.DR PO SCH (06:02)
[2021-06-17] MEDS: BLOOD SUGAR DIAGNOSTIC 1 EACH STRIP VI SCH ×4 (06:33→20:40)
--- NOTE | 2021-06-17 06:40 | NUR ---
Pt slept throughout the night, easily arousable for care. Denies pain and discomfort at this time. Due medication given and tolerated well. Accuchecks done 131. All needs attended. Call light placed within reach. Will endorse to next shift for continuity of care.
[2021-06-17 08:08] VITALS: BP 128/68
--- NOTE | 2021-06-17 08:15 | NUR ---
Patient received in bed sleeping comfortably. No signs of respiratory distress noted. Bed locked and in lowest position. Call light within reach. Will continue to monitor.
[2021-06-17] MEDS: INSULIN REGULAR, HUMAN 300 UNIT/3 ML VIAL SQ PRN (08:28)
[2021-06-17] MEDS: METFORMIN HCL 500 MG TABLET PO SCH ×2 (08:29→17:13)
[2021-06-17] MEDS: LIDOCAINE 5% PATCH TD SCH (09:00)
[2021-06-17] MEDS: DULOXETINE 60 MG CAPSULE.DR PO SCH (09:23)
[2021-06-17] MEDS: FERROUS SULFATE 325 MG TABEC PO SCH ×2 (09:26→20:36)
[2021-06-17] MEDS: COQ PO SCH (09:27)
[2021-06-17] MEDS: MULTIVITAMINS,THERAPEUTIC TABLET PO SCH (09:27)
[2021-06-17] MEDS: HYDROCHLOROTHIAZIDE 12.5 MG CAPSULE PO SCH (09:27)
[2021-06-17] MEDS: BENAZEPRIL HCL 20 MG TABLET PO SCH (09:27)
[2021-06-17] MEDS: LEVOTHYROXINE SODIUM 100 MCG TABLET PO SCH (09:27)
[2021-06-17] MEDS: buPROPion XL 150 MG TAB.SR.24H PO SCH (09:28)
[2021-06-17] MEDS: VALACYCLOVIR HCL 500 MG TABLET PO SCH (09:28)
[2021-06-17] MEDS: HYDROCODONE/APAP 5-325MG TABLET PO PRN (10:42)
[2021-06-17 15:22] VITALS: BP_SYST 111; BP_SYST 136; BP_DIAS 53; BP_DIAS 82
[2021-06-17 20:00] VITALS: BP 170/80
[2021-06-17] MEDS: ATORVASTATIN 40 MG TABLET PO SCH (20:35)
[2021-06-17] MEDS: MELATONIN 3 MG TABLET PO SCH (20:36)
[2021-06-17] MEDS: INSULIN REGULAR, HUMAN 300 UNITS/3 ML VIAL SQ PRN (20:44)
--- NOTE | 2021-06-18 01:56 | NUR ---
Resting in bed. AAOx4 All due meds given as ordered. Accucheck 155 with coverage given. Needs attended. VSS. Kept comfortable. OOB to the BR with back brace on. Voiding freely. Will monitor patient. Denies any pain nor any discomfort. Siderails up for safety.
[2021-06-18 04:00] VITALS: BP 112/52
[2021-06-18 06:13] LABS: HEMATOCRIT 31.3 % (31.2-41.9); MEAN CORPUSCULAR HEMOGLOBIN 33.7 uug (24.7-32.8); PLATELET COUNT (AUTO) 282 K/uL (179-408)
[2021-06-18] MEDS: PANTOPRAZOLE SODIUM 40 MG TABLET.DR PO SCH (06:13)
[2021-06-18 06:23] LABS: CREATININE 1.1 mg/dL (0.6-1.3); POTASSIUM 3.9 mmol/L (3.5-5.1)
[2021-06-18] MEDS: BLOOD SUGAR DIAGNOSTIC 1 EACH STRIP VI SCH ×4 (06:30→21:05)
--- NOTE | 2021-06-18 06:38 | NUR ---
End of shift notes: Slept well most of the shift. Needs attended. All due meds given as ordered. Accucheck this am was 136. OOB to the BR with walker. Minimum assist noted. No complaints so far.
[2021-06-18 07:26] VITALS: BP 115/56
--- NOTE | 2021-06-18 07:30 | NUR ---
Patient received in bed with eyes closed, but easily arousable. Alert and oriented x4. Patient on RA with no SOB or difficulties breathing. No acute distress noted. No c/o pain or discomforts at this time. All needs met. Call light and personal belongings within easy reach. Will continue to monitor.
[2021-06-18] MEDS: buPROPion XL 150 MG TAB.SR.24H PO SCH (08:30)
[2021-06-18] MEDS: DULOXETINE 60 MG CAPSULE.DR PO SCH (08:30)
[2021-06-18] MEDS: MULTIVITAMINS,THERAPEUTIC TABLET PO SCH (08:31)
[2021-06-18] MEDS: LEVOTHYROXINE SODIUM 100 MCG TABLET PO SCH (08:31)
[2021-06-18] MEDS: BENAZEPRIL HCL 20 MG TABLET PO SCH (08:31)
[2021-06-18] MEDS: METFORMIN HCL 500 MG TABLET PO SCH ×2 (08:31→18:09)
[2021-06-18] MEDS: HYDROCHLOROTHIAZIDE 12.5 MG CAPSULE PO SCH (08:31)
[2021-06-18] MEDS: COQ PO SCH (08:34)
[2021-06-18] MEDS: LIDOCAINE 5% PATCH TD SCH ×2 (08:34→08:47)
[2021-06-18] MEDS: VALACYCLOVIR HCL 500 MG TABLET PO SCH (08:34)
[2021-06-18] MEDS: FERROUS SULFATE 325 MG TABEC PO SCH ×2 (08:45→21:04)
[2021-06-18] MEDS: INSULIN REGULAR, HUMAN 300 UNIT/3 ML VIAL SQ PRN ×3 (08:49→18:10)
[2021-06-18 15:48] VITALS: BP 146/85
[2021-06-18 20:30] VITALS: BP 122/61
--- NOTE | 2021-06-18 21:00 | NUR ---
Received pt resting in bed. AAO x4. No acute distress noted. at bedside. Accucheck 164, insulin coverage given as per sliding scale. Due meds given as ordered. Medicated for pain for back pain 05/11. Safety measures maintained. Call light within reach. Will continue to monitor.
[2021-06-18] MEDS: MELATONIN 3 MG TABLET PO SCH (21:04)
[2021-06-18] MEDS: ATORVASTATIN 40 MG TABLET PO SCH (21:05)
[2021-06-18] MEDS: INSULIN REGULAR, HUMAN 300 UNITS/3 ML VIAL SQ PRN (21:06)
[2021-06-18] MEDS: HYDROCODONE/APAP 5-325MG TABLET PO PRN (21:09)
--- NOTE | 2021-06-18 21:50 | NUR ---
Report given to Royer CHEUNG
--- NOTE | 2021-06-18 22:00 | NUR ---
received to care, lying in bed, alert and oriented x 3, with at bedside. she has good insight into her condition, and situation. is aware of planned discharge to home, on 06/20/21 reports good relief from norco (/), given at 2130, for lower back pain. assisted as needed. call light remains in reach, at all times. is in no acute distress, at this time. will continue to monitor, closely.
[2021-06-19 04:35] VITALS: BP 96/41
[2021-06-19] MEDS: PANTOPRAZOLE SODIUM 40 MG TABLET.DR PO SCH (06:35)
[2021-06-19] MEDS: BLOOD SUGAR DIAGNOSTIC 1 EACH STRIP VI SCH ×4 (06:43→21:06)
--- NOTE | 2021-06-19 07:00 | NUR ---
slept well. denies pain or discomfort.
[2021-06-19 07:25] VITALS: BP 131/59
[2021-06-19] MEDS: METFORMIN HCL 500 MG TABLET PO SCH ×2 (08:50→17:47)
[2021-06-19] MEDS: DULOXETINE 60 MG CAPSULE.DR PO SCH (08:50)
[2021-06-19] MEDS: FERROUS SULFATE 325 MG TABEC PO SCH ×2 (08:50→21:05)
[2021-06-19] MEDS: HYDROCHLOROTHIAZIDE 12.5 MG CAPSULE PO SCH (08:51)
[2021-06-19] MEDS: MULTIVITAMINS,THERAPEUTIC TABLET PO SCH (08:51)
[2021-06-19] MEDS: buPROPion XL 150 MG TAB.SR.24H PO SCH (08:51)
[2021-06-19] MEDS: LEVOTHYROXINE SODIUM 100 MCG TABLET PO SCH (08:52)
[2021-06-19] MEDS: HYDROCODONE/APAP 5-325MG TABLET PO PRN ×2 (08:52→21:05)
[2021-06-19] MEDS: VALACYCLOVIR HCL 500 MG TABLET PO SCH (08:52)
[2021-06-19] MEDS: COQ PO SCH (08:53)
[2021-06-19] MEDS: BENAZEPRIL HCL 20 MG TABLET PO SCH (08:55)
[2021-06-19] MEDS: LIDOCAINE 5% PATCH TD SCH (08:59)
[2021-06-19 11:28] VITALS: BP 94/65
[2021-06-19] MEDS: INSULIN REGULAR, HUMAN 300 UNIT/3 ML VIAL SQ PRN (11:56)
[2021-06-19 15:12] VITALS: BP 130/64
[2021-06-19] MEDS: ATORVASTATIN 40 MG TABLET PO SCH (21:05)
[2021-06-19] MEDS: MELATONIN 3 MG TABLET PO SCH (21:05)
[2021-06-19] MEDS: INSULIN REGULAR, HUMAN 300 UNITS/3 ML VIAL SQ PRN (21:06)
[2021-06-19 21:52] VITALS: BP 152/80
--- NOTE | 2021-06-20 00:02 | NUR ---
Received patient sitting on chair. AAOx4. Son at beside. No acute distress noted. Accu-check done, showing result of 140, insulin coverage given as per sliding scale. Due medications given as ordered. Patient medicated for head and back pain, reported pain as 8 out of 10, offered [place] 5 or 10 mg options, patient preferred taking [place] 5mg. Safety measures maintained. Call light within reach. Will continue to monitor.
[2021-06-20 04:00] VITALS: BP 123/55
[2021-06-20] MEDS: PANTOPRAZOLE SODIUM 40 MG TABLET.DR PO SCH (06:32)
[2021-06-20] MEDS: BLOOD SUGAR DIAGNOSTIC 1 EACH STRIP VI SCH ×2 (06:38→11:30)
[2021-06-20 06:56] LABS: HEMATOCRIT 33.2 % (31.2-41.9); PLATELET COUNT (AUTO) 305 K/uL (179-408)
[2021-06-20 07:20] LABS: CREATININE 1.2 mg/dL (0.6-1.3); MAGNESIUM 1.5 mg/dL (1.8-2.4); PHOSPHOROUS 4.2 mg/dL (2.5-4.9); POTASSIUM 3.7 mmol/L (3.5-5.1); URIC ACID 5.9 mg/dL (2.6-6.0)
[2021-06-20 08:00] VITALS: BP 127/58
[2021-06-20 08:29] VITALS: BP 127/58
[2021-06-20] MEDS: LEVOTHYROXINE SODIUM 100 MCG TABLET PO SCH (08:29)
[2021-06-20] MEDS: DULOXETINE 60 MG CAPSULE.DR PO SCH (08:29)
[2021-06-20] MEDS: FERROUS SULFATE 325 MG TABEC PO SCH (08:29)
[2021-06-20] MEDS: buPROPion XL 150 MG TAB.SR.24H PO SCH (08:29)
[2021-06-20] MEDS: HYDROCHLOROTHIAZIDE 12.5 MG CAPSULE PO SCH (08:29)
[2021-06-20] MEDS: METFORMIN HCL 500 MG TABLET PO SCH (08:29)
[2021-06-20] MEDS: BENAZEPRIL HCL 20 MG TABLET PO SCH (08:29)
[2021-06-20] MEDS: MULTIVITAMINS,THERAPEUTIC TABLET PO SCH (08:29)
[2021-06-20] MEDS: VALACYCLOVIR HCL 500 MG TABLET PO SCH (08:30)
[2021-06-20] MEDS: COQ PO SCH (08:30)
[2021-06-20] MEDS: INSULIN REGULAR, HUMAN 300 UNIT/3 ML VIAL SQ PRN (08:33)
[2021-06-20] MEDS: LIDOCAINE 5% PATCH TD SCH (08:36)
[2021-06-20] MEDS ORDERED: MAGNESIUM SULFATE/D5W 100 ML IV SCH (09:00)
[2021-06-20] MEDS: HYDROCODONE/APAP 5-325MG TABLET PO PRN (09:06)
[2021-06-20] MEDS ORDERED: MAGNESIUM OXIDE 400 MG TABLET PO ONE (11:00)
--- NOTE | 2021-06-20 11:00 | NUR ---
patient is alert and oriented x 4, in room air saturating at 95%, all due meds given per MD order, cooperative upon assessment. Went off the unit for an hour for therapy. All needs met promptly.
--- NOTE | 2021-06-20 15:03 | NUR ---
Patient is going home today Dr. Garcia and Dr. Sloan made aware. CD copy of the xray given to the patient. Discharge instructions given to the patient. Body assessment done, belongings checked. Home medication given. Assisted patient to the lobby via wheelchair.
== END 2021-06-20 15:00 | disposition home or self-care (01) | DRG 560 ==
PROVIDERS: ADMIT Physical Medicine & Rehabilitation Pain Medicine; ATTEND Physical Medicine & Rehabilitation Pain Medicine
DX: S22.089D Unspecified fracture of T11-T12 vertebra, subsequent encounter for fracture with routine healing (principal); E44.1 Mild protein-calorie malnutrition; E87.1 Hypo-osmolality and hyponatremia; S00.11XD Contusion of right eyelid and periocular area, subsequent encounter; W01.0XXD Fall on same level from slipping, tripping and stumbling without subsequent striking against object, subsequent encounter; D53.9 Nutritional anemia, unspecified; E03.9 Hypothyroidism, unspecified; E78.5 Hyperlipidemia, unspecified; E86.0 Dehydration; G47.00 Insomnia, unspecified; M48.02 Spinal stenosis, cervical region; E66.01 Morbid (severe) obesity due to excess calories; K44.9 Diaphragmatic hernia without obstruction or gangrene; M25.78 Osteophyte, vertebrae; M47.814 Spondylosis without myelopathy or radiculopathy, thoracic region; M48.04 Spinal stenosis, thoracic region; M48.10 Ankylosing hyperostosis [Forestier], site unspecified; Z86.73 Personal history of transient ischemic attack (TIA), and cerebral infarction without residual deficits; Z87.891 Personal history of nicotine dependence; R26.9 Unspecified abnormalities of gait and mobility; M62.838 Other muscle spasm; N18.30 Chronic kidney disease, stage 3 unspecified; E11.22 Type 2 diabetes mellitus with diabetic chronic kidney disease; R26.81 Unsteadiness on feet; Z88.2 Allergy status to sulfonamides
CPT/HCPCS: 36415; 83550; 83735; 83935; 84100; 84300; 84550; 85025; 97161; A4663; J1815